=== PATIENT | male | born 1965 | race Caucasian/White ===

== ENCOUNTER → 2022-02-01 | Outpatient (CLI) | payer OTHER ==
[2022-02-01 11:27] LABS: HEMOGLOBIN 15.2 gm/dl (14.0-17.5); RED BLOOD COUNT 4.83 M/UL (4.20-5.50); WHITE BLOOD COUNT 7.9 K/UL (4.5-11.0)
[2022-02-01 11:40] LABS: BUN/CREATININE RATIO 9 (0-10)
== END ==
LOC: LAB 10:37
PROVIDERS: Surgery
DX: Z86.010 Personal history of colon polyps (principal); R94.31 Abnormal electrocardiogram [ECG] [EKG]; I49.3 Ventricular premature depolarization
CPT/HCPCS: 36415; 71046; 80048; 85025; 93005